=== PATIENT | female | born 1970 | race Caucasian/White ===

== ENCOUNTER 2021-10-24 12:58 | Emergency (ER) | payer BC ==
--- NOTE | 2021-10-24 13:03 | ERPHSYRPT ---
- History of Present Illness Time Seen by Provider: 10/24/21 13:03 Source: patient Exam Limitations: no limitations Physician History: This 50-year-old white female who smokes daily and has no documented medical diagnoses and does not take any medications chronically presented to the outpatient clinic because of cough and shortness of breath intermittently over the last 2 weeks. She has had worsening shortness of breath when lying flat and with exertion. She became concerned and sought evaluation today at the clinic. Because of the concern for possible pneumonia, pulmonary embolus or congestive heart failure, the patient was referred to us for evaluation and management. Patient, again, has no history of coronary artery disease. She has some chest pain as well and there was a concern for possible myocardial infarction as well. She denies fever. She has no known exposure to individuals with diagnoses of viral illness or COVID-19 infection. Timing/Duration: week(s) (2) Cough Quality/Degree: mild (Worse with activity) Possible Cause: occasional episodes Modifying Factors: Improves With: activity (Worsens), coughing Associated Symptoms: chest pain/soreness, cough, shortness of breath Allergies/Adverse Reactions: iodine Allergy (Verified 10/24/21 13:23) Travel Risk - International Travel Have you traveled outside of the country in past 3 weeks: No - Coronavirus Screening Are you exhibiting any of the following symptoms?: Yes Symptoms: Cough: New Onset, Shortness of Breath Close contact with a COVID-19 positive Pt in past 14-21 Days: No - Vaccine Status Have you recieved a Covid-19 vaccination: No - Review of Systems Constitutional: No Symptoms Eyes: No Symptoms Ears, Nose, & Throat: No Symptoms Respiratory: Cough, Dyspnea, Dyspnea on Exertion (GODOY) Cardiac: Chest Pain (Nonradiating central substernal ache) Abdominal/Gastrointestinal: No Symptoms Genitourinary Symptoms: No Symptoms Musculoskeletal: No Symptoms Skin: No Symptoms Neurological: No Symptoms Psychological: No Symptoms Endocrine: No Symptoms Hematologic/Lymphatic: No Symptoms Immunological/Allergic: No Symptoms All Other Systems: Reviewed and Negative - Past Medical History Pertinent Past Medical History: No Neurological History: No Pertinent History Cardiac History: No Pertinent History Respiratory History: No Pertinent History Endocrine Medical History: No Pertinent History Musculoskeletal History: Fractures Other Medical History: Clavicular fx at age 14 - Past Surgical History Past Surgical History: No - Nursing Vital Signs Nursing Vital Signs: Initial Vital Signs Temperature 97.5 F 10/24/21 13:09 Pulse Rate 82 10/24/21 13:09 Blood Pressure 153/83 10/24/21 13:09 O2 Sat by Pulse Oximetry 99 10/24/21 13:09 Pain Scale Pain Intensity 0 - Physical Exam General Appearance: no apparent distress, alert, anxiety, thin Eye Exam: PERRL/EOMI, eyes nml inspection Ears, Nose, Throat Exam: normal ENT inspection, moist mucous membranes Neck Exam: normal inspection, non-tender, supple, full range of motion Respiratory Exam: normal breath sounds, chest tenderness (Nonradiating, substernal, central, ache), lungs clear, airway intact, No respiratory distress Cardiovascular Exam: regular rate/rhythm, normal heart sounds, normal peripheral pulses Gastrointestinal/Abdomen Exam: soft, normal bowel sounds, No tenderness Rectal Exam: not done Back Exam: normal inspection, normal range of motion, No CVA tenderness, No vertebral tenderness Extremity Exam: normal inspection, normal range of motion, pelvis stable Neurologic Exam: alert, oriented x 3, cooperative, 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 No comparison twelve-lead EKG available.) Ordered Tests: Active Orders 24 hr Category Date Time Status Derivatives Trader STAT Care 10/24/21 13:33 Active EKG-ER Only STAT Care 10/24/21 13:33 Active IV Insertion STAT Care 10/24/21 13:33 Active Pulse Oximetry (ED) STAT Care 10/24/21 13:33 Active CHEST 1 VIEW (PORTABLE) Stat Exams 10/24/21 13:33 Completed CBC Q48H Lab 10/25/21 06:00 Ordered CBC Q48H Lab 10/27/21 06:00 Ordered CBC Q48H Lab 10/29/21 06:00 Ordered CBC Q48H Lab 10/31/21 06:00 Ordered CBC Q48H Lab 11/02/21 06:00 Ordered CBC Q48H Lab 11/04/21 06:00 Ordered CBC Q48H Lab 11/06/21 06:00 Ordered CBC W DIFF Stat Lab 10/24/21 13:33 Completed CMP Stat Lab 10/24/21 13:50 Completed D-DIMER QUANTITATIVE Stat Lab 10/24/21 13:50 Completed NT PRO BNP Stat Lab 10/24/21 13:50 Completed PROTIME WITH INR Stat Lab 10/24/21 13:50 Completed PTT Q4H Lab 10/24/21 17:45 Ordered PTT Q4H Lab 10/25/21 01:45 Ordered PTT Q4H Lab 10/25/21 05:45 Ordered PTT Q4H Lab 10/25/21 09:45 Ordered PTT Q4H Lab 10/25/21 13:45 Ordered PTT Q4H Lab 10/25/21 17:45 Ordered PTT Q4H Lab 10/25/21 21:45 Ordered PTT Q4H Lab 10/26/21 01:45 Ordered PTT Q4H Lab 10/26/21 05:45 Ordered PTT Q4H Lab 10/26/21 09:45 Ordered PTT Stat Lab 10/24/21 13:50 Completed TROPONIN Q4H Lab 10/24/21 13:50 Completed TROPONIN Q4H Lab 10/24/21 17:45 Ordered TROPONIN Q4H Lab 10/24/21 21:45 Ordered Medication Summary Discontinued Medications Generic Name Dose Route Start Last Admin Trade Name Freq PRN Reason Stop Dose Admin Enoxaparin Sodium 60 mg 10/24/21 15:05 10/24/21 15:11 Enoxaparin Sodium 60 Mg/0.6 Ml Syringe SQ 10/24/21 15:06 60 mg STAT ONE Administration Enoxaparin Sodium Confirm 10/24/21 15:10 Enoxaparin Sodium 80 Mg/0.8 Ml Syringe Administered 10/24/21 15:11 Dose 80 mg SQ .STK-MED ONE Lab/Rad Data: Laboratory Result Diagrams 10/24/21 13:33 10/24/21 13:50 Laboratory Results 10/24/21 10/24/21 10/24/21 Range/Units 13:50 13:50 13:50 WBC (4.0-10.5) x10^3/uL RBC (4.1-5.4) x10^6/uL Hgb (12.0-16.0) g/dL Hct (35-47) % MCV (78-100) fL MCH (26-32) pg MCHC (32-36) g/dL RDW (11.5-14.0) % Plt Count (150-450) x10^3/uL MPV (7.5-11.0) fL Gran % (36.0-66.0) % Immature Gran % (Auto) (0.00-0.4) % Nucleat RBC Rel Count (0.00-0.1) % Eos # (Auto) (0-0.5) x10^3/uL Immature Gran # (Auto) (0.00-0.03) x10^3u/L Absolute Lymphs (auto) (1.0-4.6) x10^3/uL Absolute Monos (auto) (0.0-1.3) x10^3/uL Absolute Nucleated RBC (0.00-0.01) x10^3u/L Lymphocytes % (24.0-44.0) % Monocytes % (0.0-12.0) % Eosinophils % (0.00-5.0) % Basophils % (0.0-0.4) % Absolute Granulocytes (1.4-6.9) x10^3/uL Basophils # (0-0.4) x10^3/uL PT 10.4 (9.4-12.5) SECONDS INR 0.98 (0.8-3.0) APTT 30.6 (25.1-36.5) SECONDS D-Dimer 0.91 H* (0.0-0.50) mg/L Sodium 136 L (137-145) mmol/L Potassium 3.7 (3.5-5.1) mmol/L Chloride 100 (98-107) mmol/L Carbon Dioxide 28 (22-30) mmol/L Anion Gap 11.6 (5-15) MEQ/L BUN 4 L (7-17) mg/dL Creatinine 0.67 (0.52-1.04) mg/dL Estimated GFR > 60.0 ML/MIN Glucose 98 (74-106) mg/dL Calcium 9.1 (8.4-10.2) mg/dL Total Bilirubin 0.80 (0.2-1.3) mg/dL AST 49 H (14-36) U/L ALT 35 (0-35) U/L Alkaline Phosphatase 109 (38-126) U/L Troponin I < 0.012 (0.000-0.034) ng/mL NT-Pro-B Natriuret Pep 39.2 (0-450) pg/mL Serum Total Protein 8.2 (6.3-8.2) g/dL Albumin 4.5 (3.5-5.0) g/dL 10/24/21 Range/Units 13:33 WBC 5.8 (4.0-10.5) x10^3/uL RBC 4.81 (4.1-5.4) x10^6/uL Hgb 14.5 (12.0-16.0) g/dL Hct 43.7 (35-47) % MCV 90.9 (78-100) fL MCH 30.1 (26-32) pg MCHC 33.2 (32-36) g/dL RDW 13.2 (11.5-14.0) % Plt Count 247 (150-450) x10^3/uL MPV 8.6 (7.5-11.0) fL Gran % 59.1 (36.0-66.0) % Immature Gran % (Auto) 0.2 (0.00-0.4) % Nucleat RBC Rel Count 0.0 (0.00-0.1) % Eos # (Auto) 0.03 (0-0.5) x10^3/uL Immature Gran # (Auto) 0.01 (0.00-0.03) x10^3u/L Absolute Lymphs (auto) 1.93 (1.0-4.6) x10^3/uL Absolute Monos (auto) 0.38 (0.0-1.3) x10^3/uL Absolute Nucleated RBC 0.00 (0.00-0.01) x10^3u/L Lymphocytes % 33.3 (24.0-44.0) % Monocytes % 6.6 (0.0-12.0) % Eosinophils % 0.5 (0.00-5.0) % Basophils % 0.3 (0.0-0.4) % Absolute Granulocytes 3.42 (1.4-6.9) x10^3/uL Basophils # 0.02 (0-0.4) x10^3/uL PT (9.4-12.5) SECONDS INR (0.8-3.0) APTT (25.1-36.5) SECONDS D-Dimer (0.0-0.50) mg/L Sodium (137-145) mmol/L Potassium (3.5-5.1) mmol/L Chloride (98-107) mmol/L Carbon Dioxide (22-30) mmol/L Anion Gap (5-15) MEQ/L BUN (7-17) mg/dL Creatinine (0.52-1.04) mg/dL Estimated GFR ML/MIN Glucose (74-106) mg/dL Calcium (8.4-10.2) mg/dL Total Bilirubin (0.2-1.3) mg/dL AST (14-36) U/L ALT (0-35) U/L Alkaline Phosphatase (38-126) U/L Troponin I (0.000-0.034) ng/mL NT-Pro-B Natriuret Pep (0-450) pg/mL Serum Total Protein (6.3-8.2) g/dL Albumin (3.5-5.0) g/dL - Progress Air Movement: good Progress Note: 10/24/21 15:17 Chest x-ray shows no acute cardiopulmonary process. There is a 2.1 cm left base nodule. This finding was discussed with the patient and she understands that she will be following up with nurse practitioner Niyah for this finding. 10/24/21 15:18 Medical decision making: This patient has cough and has shortness of breath especially with exertion and laying flat. Her troponin and BNP levels are normal. Her chest x-ray does not show pneumonia. She does have a left lung base nodule. Her D-dimer is elevated. Patient has a true allergy to iodine. I will be providing her with a subcutaneous dose of 60 mg of Lovenox. I will send a second dose that she will take tomorrow morning subcutaneously of the same dose of Lovenox. I will also send a prescription of prednisone and an albuterol inhaler for her to use. The patient will also undergo a VQ scan tomorrow at noon (10/25/2021) and the results will be faxed to Bianka Linder nurse practitioner. I did request for the results to be read stat. Blood Culture(s) Obtained: No Antibiotics given: No Counseled pt/family regarding: lab results, diagnosis, need for follow-up, rad results - Departure Departure Disposition: Home Clinical Impression: Cough, Shortness of breath, Bronchitis, Lung nodule, Elevated d-dimer Condition: Stable Critical Care Time: No Referrals: TICO LINDER, [employer] [Primary Care Provider] - Follow up/PCP as directed Additional Instructions: Take your morning dose of Lovenox subcutaneously 60 mg as prescribed. Proceed to radiology department tomorrow morning just before noon to obtain your VQ scan. Contact Bianka Linder's office approximately 1 to 2 hours after you are home from your VQ scan test to obtain your results and for further instructions/management. Prescriptions: Prednisone 10 mg [Deltasone 10 mg] 10 mg PO TID #12 tablet Enoxaparin Sodium [Lovenox] 60 mg SQ QAM #1 unit
[2021-10-24 13:58] LABS: Absolute Neutrophil Ct (ANC) 3.42 x10^3/uL (1.4-6.9); Basophil (Absolute #) 0.02 x10^3/uL (0-0.4); Eosinophil % 0.5 % (0.00-5.0); Eosinophil (Absolute #) 0.03 x10^3/uL (0-0.5); Hematocrit 43.7 % (35-47); Hemoglobin 14.5 g/dL (12.0-16.0); Lymphocyte (Absolute #) 1.93 x10^3/uL (1.0-4.6); Lymphocytes % 33.3 % (24.0-44.0); Mean Cell Volume 90.9 fL (78-100); Mean Corpuscular Hemoglobin 30.1 pg (26-32); Mean Corpuscular Hgb Concent. 33.2 g/dL (32-36); Mean Platelet Volume 8.6 fL (7.5-11.0); Monocyte (Absolute #) 0.38 x10^3/uL (0.0-1.3); Monocytes % 6.6 % (0.0-12.0); Neutrophil % 59.1 % (36.0-66.0); Platelet Count 247 x10^3/uL (150-450); Red Blood Count 4.81 x10^6/uL (4.1-5.4); Red Cell Distribution Width 13.2 % (11.5-14.0); White Blood Count 5.8 x10^3/uL (4.0-10.5)
--- NOTE | 2021-10-24 14:05 | XRAY ---
Indication: Cough. Comparison: None Portable chest demonstrates 2.1 cm left base nodularity better evaluated with CT. Remaining heart, lungs, and bony thorax normal.
[2021-10-24 14:22] LABS: ALBUMIN 4.5 g/dL (3.5-5.0); ALKALINE PHOSPHATASE 109 U/L (38-126); ANION GAP 11.6 MEQ/L (5-15); BLOOD UREA NITROGEN 4 mg/dL (7-17); CHLORIDE 100 mmol/L (98-107); Calcium 9.1 mg/dL (8.4-10.2); Carbon Dioxide 28 mmol/L (22-30); Creatinine 1 0.67 mg/dL (0.52-1.04); EST GLOMERULAR FILTRATION RATE > 60.0 ML/MIN; Glucose 98 mg/dL (74-106); NT PRO BNP 39.2 pg/mL (0-450); Potassium 3.7 mmol/L (3.5-5.1); SGOT/AST 49 U/L (14-36); SGPT/ALT 35 U/L (0-35); SODIUM 136 mmol/L (137-145); Total Protein 8.2 g/dL (6.3-8.2)
[2021-10-24 14:32] LABS: INR 0.98 (0.8-3.0); PROTIME 10.4 SECONDS (9.4-12.5); PTT 30.6 SECONDS (25.1-36.5)
[2021-10-24 14:39] LABS: D-DIMER QUANTITATIVE 0.91 mg/L (0.0-0.50)
[2021-10-24] MEDS ORDERED: ENOXAPARIN SODIUM SQ ONE ×2 (15:05→15:10)
[2021-10-24 15:40] VITALS: BP 120/72; PULSE 72; O2SAT 98
--- NOTE | 2021-10-24 16:36 | XRAY ---
Indication: Cough. Elevated d-dimer. Comparison: Taken earlier in the day. PA/lateral chest again demonstrates 2.1 cm left base nodularity on frontal view. No corresponding abnormality on lateral view. Remaining heart, lungs, and bony thorax normal.
== END 2021-10-24 15:39 | disposition home or self-care (01) ==
LOC: ED 12:58
DX: J40 Bronchitis, not specified as acute or chronic (principal); R05.9 Cough, unspecified; R06.02 Shortness of breath; R91.1 Solitary pulmonary nodule; R79.1 Abnormal coagulation profile; Z72.0 Tobacco use; Z79.52 Long term (current) use of systemic steroids; Z28.310 Unvaccinated for COVID-19
CPT/HCPCS: 36000; 36415; 71045; 71046; 80053; 83880; 84484; 85025; 85379; 85610; 85730; 93005; 94760; 96372; 99284; J1650